=== PATIENT | male | born 1995 | race Caucasian/White ===

== ENCOUNTER 2021-09-27 22:02 | Inpatient (IN) | payer SELFPAY ==
[2021-09-27 22:46] VITALS: BP 116/71; PULSE 81; RESP 17; O2SAT 96
[2021-09-27 22:56] VITALS: BMI 23.0
--- NOTE | 2021-09-28 01:31 | PC.NURSE ---
Admission 26 y/o male with hx of PTSD. Brought to ED after cutting wrists and wrapping something around his neck. Upon arrival to unit patient is anxious, but remained calm and is cooperative. Does have superficial scratches/baptiste to wrist and neck. Denies any SI or SA , states just self harm as a release. Reports having a manic period yesterday when this happened. Patient states he has increased anxiety with being so far from home and is hoping to discharge tomorrow. States that he sees his outpatient Dr 2x week at [facility] in [facility] and has an appointment tomorrow. Reports only current medication is Celexa 20 mg QD. is anxious, but remained calm and is cooperative. Does have superficial scratches/baptiste to wrist and neck. Denies any SI or SA , states just self harm as a release. Reports having a manic period yesterday when this happened. Patient states he has increased anxiety with being so far from home and is hoping to discharge tomorrow. States that he sees his outpatient Dr 2x week at [facility] in [facility] and has an appointment tomorrow. Reports only current medication is Celexa 20 mg QD. Patient showered after admission and has been resting in bed with eyes closed since. No signs of distress noted
--- NOTE | 2021-09-28 03:45 | PC.NURSE ---
Spoke with Received new order to resume Celexa 20 mg PO QD. Noted to MAR. Set to resume at 0900.
[2021-09-28 06:00] VITALS: BP 82/47; PULSE 57; RESP 15; O2SAT 97
--- NOTE | 2021-09-28 06:33 | PC.NURSE ---
Charge nurse notified about pts low blood pressure. We asked pt to walk up to the nurses station to recheck pressure it was 98/62.
[2021-09-28] MEDS: citalopram 20 mg Tablet PO (09:47)
--- NOTE | 2021-09-28 10:15 | NPU.GN ---
[facility] Unit Group Topic: Good Secrets Vs. Bad Secrets Psycho Therapy General Mood of Group: Fredi did not attend group today.
--- NOTE | 2021-09-28 10:25 | P.NPUHP_ITS ---
Providers/Chief Complaint Admitting Physician: Serjio Vaca MD Chief Complaint: SI HPI NPU History of Present Illness Fredi Gaines is a 26 year old male who presented to the outside hospital, reportedly endorsing suicidal thoughts. The consultation for his transfer to [facility] was several days ago. He was admitted to the outside hospital with DKA, and history of depression, and recently having expressed suicidal thoughts to his mother. Psychiatry was consulted, at that time, and it was determined that inpatient hospitalization should be pursued, after his DKA was treated. It was determined, at the outside hospital, that he should not be discharged until he went to a psychiatric unit and was fully evaluated for these suicidal threats. He had recently had a cousin who attempted suicide, and he is nearing the one year anniversary of his father?s , and his great- grandfather recently committed suicide as well. He was transferred to [facility] and was admitted to the neuropsychiatric unit for definitive treatment of those issues. He reports that he has never been in a psychiatric hospital before. He has had outpatient treatment in [place] in [facility], but he has never been on medication for psychiatric reasons. He reports that he smokes a pack of cigarettes every two to three days, but he much prefers vaping. He does not drink alcohol ?unless I am partying.? He reports marijuana use daily. He denies cocaine or opiate use regularly, or any other illicit drug use, other than methamphetamine, which he reports he used to use daily. But he reports he gave that up two to three weeks ago. He denies ever being to a drug rehabilitation or having a DUI. He reports that about three to four weeks ago, he woke up to his grandmother yelling in his face about money, and he was not sure what she really wanted, but she was at his friend?s house yelling at him like that; his friend was not happy about this, and she was talking about calling the police, and he reports that they would not be happy about what could be found if the police would have come. So he ended up leaving town and going to his mother?s house, but he was not doing well at his mother?s house because he had an infection in his foot. That infection got so bad that he went to the hospital, which is where the history of the hospital picks up. He was in DKA at that time and had an infection in his foot. He was in the hospital for about a week or so, getting treatment for his DKA and the sequela from his diabetes, and then he was there for a week waiting for a place to be transferred, he reports. He denies any suicidality now; he reports that he has never felt that way, but that was what he said, in anger, towards his grandmother, but that was weeks ago. He is not interested in any medication, at this time. We discussed the risks, benefits, and alternatives of considering some medications, and he understood and agreed to proceed as is documented in this note. He denies any history of any suicide attempts. The patient reports that,around the time that he had the conflict with his grandmother, he had decided that he was going to stop using drugs, and he has not used really since that time. He denies any symptoms of depression, anxiety, or post-traumatic stress disorder, although he does report that he sees ghosts and demons; but he reports that, when he was [age] or [age] years old, he was digging up ?[place] rocks? and that ?Indians have been following me ever since, so I know it is not the drugs.? PSYCHIATRIC HISTORY: As above. SUBSTANCE ABUSE HISTORY: As above. FAMILY HISTORY: He reports that he feels that there are a lot of people in his family, on both mom and dad?s side, that have some psychiatric issues that are untreated, but he does not know anyone specifically in treatment. He reports addiction issues on both sides of the family, and there have been suicide attempts in cousins, and a suicide completion of his great grandfather on dad?s side. 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 But otherwise, he denies any issues with his mother?s or delivery of him. The patient learned to walk and talk and met all developmental milestones on time. He denies speech therapy, learning support, emotional support, or special education classes. PSYCHOSOCIAL HISTORY: The patient reports that his mother and father were together when he was born, but they did not stay together. He has a younger sister who is also a product of that union, but he denies either of his parents having any other children, to his knowledge. He reports his childhood was rough because of the drugs, especially with his father, who used, sold, and he reports ?did everything? in relation to drugs; his father about a year ago. He reports that there was no emotional, physical, or sexual abuse. He reports he graduated from high school and he has an [employer] certificate. He endorses being heterosexual, with his longest relationship being five to six months. He has never been and never had children. He has never been in the . He endorses being a [employer]. 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 He reports that he has been popping around, but he is planning on moving into a duplex with his mom, and his sister also lives there. LEGAL HISTORY: Denied. 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 He reports that he had done really well with that, except for the last year as he has not been in a good place, as he is coming up on the anniversary of his dad?s . Meds NPU Home Medications Medication Instructions Recorded Confirmed Last Taken Type citalopram [Celexa] 20 mg PO DAILY 09/27/21 09/27/21 09/26/21 History AM Allergies Allergy/AdvReac Type Severity Reaction Status Date / Time olanzapine Allergy Unknown Verified 09/27/21 23:50 Mental Status Exam MSE Comments: This is a well-nourished, well-developed, white male, with hospital scrubs on, with adequate grooming and eye contact. No abnormal movements. Cooperative with exam in no acute distress. Speech was normal rate and volume. Mood described as alright; affect congruent. Thought process, organized. Thought content: patient denied any suicidal or homicidal ideation, there were no delusions reported or noted, patient denied any auditory or visual hallucinations. Attention, concentration, and memory appear intact but none were formally tested. He is alert and oriented times three. Insight and judgment appear fair. Impulse control is limited. Vitals/I&O/Wt Last Vital Signs Pulse 57 L 09/28/21 06:00 Resp 15 09/28/21 06:00 BP 82/47 09/28/21 06:00 Pulse Ox 97 09/28/21 06:00 Weight last 48 hrs Weight 77.111 kg A&P Assessment and plan (1) Methamphetamine abuse: Status: Acute (2) Depression: Status: Acute (3) Bereavement: Status: Acute Additional A&P Information This is an 16-year-old, white male, with a long history of addiction and drug exposure, with significant genetic loading for mental health and addiction issues, who presents reporting that things have been going okay recently, and that the issues brought up in the paperwork are from weeks ago, and are not really germane now, and he would like to discharge as soon as possible. 1. Continue current medication. 2. Encourage individual, group, and milieu therapy. 3. Continue q-15 minute checks for safety. 4. Recommend sober living treatment at the highest level of care to which the patient is willing to commit. Involuntary Hold Information 96 Hour Hold: 96 Hour Involuntary Admission: Yes Attestations NPU Medical Necessity Statement*: Inpatient hospitalization is medically necessary and the clinically appropriate intervention, at this time. We will monitor medications and make changes as indicated. Patient will be in the hospital for over two midnights. Likely length of stay is one to three days. Coding Level of Care Code Acute Lamination Operator for Alexi Walters Diagnoses Methamphetamine abuse F15.10 Depression F32.A Bereavement Z63.4
--- NOTE | 2021-09-28 18:42 | W.PM.NPUH&PS ---
Providers/Chief Complaint Admitting Physician: Serjio Vaca MD Chief Complaint: SI HPI NPU History of Present Illness Fredi Gaines is a 26 year old male who presented to the outside hospital reporting being overwhelmed with anxiety and suicidal thinking. He was transferred to the [facility] and ultimately admitted to the neuropsychiatric unit for definitive treatment of those issues. He presents today immediately focused on discharge and what he needs to do to get out of here. We discussed the fact that he is on a 96-hour hold and that we would need to speak to the family to get a sense of the level of concern patient had for safety. He reports he has been in inpatient psychiatric treatment once before that was at [facility] in May. He has had limited outpatient services and reports that he is currently on Celexa but he has been taking it for a while. He reports that he smokes about pack cigarettes a day but he has exposure to vaping, he denies alcohol marijuana or any other illicit drug use. He reports he never been to rehab and never had a DUI. He reports he is going through a lot of changes and challenges right now including a divorce, reportedly lost his job this month so he has financial challenges and that also there are some issues with having access to seeing his children. He was mostly focused on discharge not interested in talking much about medication for his anxiety reporting that he is trying to get connected with an outpatient provider that he can have that conversation with. He then tried to negotiate a discharge for this evening and advised him that he would not be getting out any earlier than tomorrow and that can only happen if were able to communicate with family. Psychiatric history: As above. Substance use history: As above. Family history: Patient denies mental health or addiction issues on either side of the family and denies suicide attempts or completions in the family. Developmental history: There were no problems with the , or delivery, learned to walk and talk and met developmental milestones on time, and denies need for speech therapy, learning support, emotional support or special education classes. Psychosocial history: Reports his parents were together he was born and that they about 2007. He has an older brother and younger sister the product of that same union. Neither of his parents have any other children. He reports his childhood was normal and he denies any emotional physical or sexual abuse. He reports that he went to 12 grade in high school and is working on his GED. He reports that he is a heterosexual as well as relationship 6 years. He reports he been one time and is currently , he has a 5-year-old and 3-year-old boys, he is never in the and he denies any sikh belief system. He reports that his longest employment has been about 3 years as a [employer] and is currently unemployed. He currently lives in a house with his heriberto and her 4 children. Legal history: Denied. Medical history: Denied. Meds NPU Home Medications Medication Instructions Recorded Confirmed Last Taken Type citalopram [Celexa] 20 mg PO DAILY 09/27/21 09/27/21 09/26/21 History AM Allergies Allergy/AdvReac Type Severity Reaction Status Date / Time olanzapine Allergy Unknown Verified 09/27/21 23:50 Mental Status Exam MSE Comments: This is a well-nourished well-developed white male with hospital scrubs on the abdomen hypoactive no abnormal movement except for psychomotor agitation. Cooperative with exam in moderate distress. Speech was decreased rate and volume. Mood described as all right but anxious affect quite anxious. Thought process organized thought content: Patient denied suicidal or homicidal ideation, there were no delusions reported or noted, he denied any auditory visual hallucinations. Attention and concentration were mostly intact and memory appeared reliable but none were formally tested. He is alert and oriented x3. Insight and judgment appear fair impulse control is limited. Vitals/I&O/Wt Last Vital Signs Temp 97.9 F 09/28/21 21:23 Pulse 64 09/28/21 21:23 Resp 16 09/28/21 21:23 BP 108/66 09/28/21 21:23 Pulse Ox 97 09/28/21 21:23 Weight last 48 hrs Weight 77.111 kg A&P Assessment and plan (1) Depression: Status: Acute (2) Partner relational problem: Status: Acute (3) Generalized anxiety disorder: Status: Acute Additional A&P Information This is a 26-year-old white male with a long history of anxiety and recent psychosocial stressors which led him to self-injurious behavior which he reportedly has been in the past but denies any active suicidal thinking here in the ninth 6-hour hold. 1. Continue current medication. 2. Continue every 15 minute checks for safety. 3. Encourage individual, group and milieu therapies. 4. We will work with the treatment team to identify risk factors given the 96-hour hold to determine how long we will need to keep him given his resistance to staying. Involuntary Hold Information 96 Hour Hold: 96 Hour Involuntary Admission: Yes Attestations NPU Medical Necessity Statement*: Inpatient hospitalization is medically necessary and the clinically appropriate intervention at this time. We will monitor medication to make changes as indicated. Likely length of stay 2-4 days. Coding Level of Care Code Acute Enrichment Assistant for Alexi Walters Diagnoses Depression F32.A Partner relational problem Z63.0 Generalized anxiety disorder F41.1
[2021-09-28] MEDS: nicotine 2 mg Gum BUCCAL (19:32)
[2021-09-28] MEDS: trazodone 50 mg Tablet PO (20:33)
[2021-09-28 21:23] VITALS: BP 108/66; PULSE 64; RESP 16; TEMP 36.6; O2SAT 97
[2021-09-29 06:00] VITALS: BP 85/46; PULSE 83; RESP 16; TEMP 36.5; O2SAT 98
[2021-09-29] MEDS: citalopram 20 mg Tablet PO (08:30)
[2021-09-29] MEDS: nicotine 2 mg Gum BUCCAL ×4 (12:28→17:10)
[2021-09-29 14:00] VITALS: BP 115/76; PULSE 82; RESP 17; TEMP 36.3; O2SAT 95
[2021-09-29 18:20] VITALS: BP 115/76; PULSE 82; RESP 17; TEMP 36.3; O2SAT 95
--- NOTE | 2021-09-29 18:26 | W.PM.NPUDCS ---
Diagnoses at Discharge Discharge Diagnosis (1) Depression: Status: Acute (2) Partner relational problem: Status: Acute (3) Generalized anxiety disorder: Status: Acute Reason for Visit Reason for Visit: SI Brief History: History of Present Illness Fredi Gaines is a 26 year old male who presented to the outside hospital reporting being overwhelmed with anxiety and suicidal thinking. He was transferred to the [facility] and ultimately admitted to the neuropsychiatric unit for definitive treatment of those issues. He presents today immediately focused on discharge and what he needs to do to get out of here. We discussed the fact that he is on a 96-hour hold and that we would need to speak to the family to get a sense of the level of concern patient had for safety. He reports he has been in inpatient psychiatric treatment once before that was at [facility] in May. He has had limited outpatient services and reports that he is currently on Celexa but he has been taking it for a while. He reports that he smokes about pack cigarettes a day but he has exposure to vaping, he denies alcohol marijuana or any other illicit drug use. He reports he never been to rehab and never had a DUI. He reports he is going through a lot of changes and challenges right now including a divorce, reportedly lost his job this month so he has financial challenges and that also there are some issues with having access to seeing his children. He was mostly focused on discharge not interested in talking much about medication for his anxiety reporting that he is trying to get connected with an outpatient provider that he can have that conversation with. He then tried to negotiate a discharge for this evening and advised him that he would not be getting out any earlier than tomorrow and that can only happen if were able to communicate with family. Psychiatric history: As above. Substance use history: As above. Family history: Patient denies mental health or addiction issues on either side of the family and denies suicide attempts or completions in the family. Developmental history: There were no problems with the , or delivery, learned to walk and talk and met developmental milestones on time, and denies need for speech therapy, learning support, emotional support or special education classes. Psychosocial history: Reports his parents were together he was born and that they about 2007. He has an older brother and younger sister the product of that same union. Neither of his parents have any other children. He reports his childhood was normal and he denies any emotional physical or sexual abuse. He reports that he went to 12 grade in high school and is working on his GED. He reports that he is a heterosexual as well as relationship 6 years. He reports he been one time and is currently , he has a 5-year-old and 3-year-old boys, he is never in the and he denies any yazidi belief system. 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 He currently lives in a house with his heriberto and her 4 children. Legal history: Denied. Medical history: Denied. Hospital Course Hospital Course He slowly acclimated to the individual, group therapies provided. He was very anxious and spent much of the time like he was frightened by his surroundings. He continued to have clarity that he had no actual suicidal intentions and argued that if he was actually doing something outside of self-injurious behavior that it would be more notable than the mild scratches and scrapes seen on his body. This part was accurate. Contact with his significant other describes him being very anxious especially in his current situation and having normal separation anxiety. She denied any concerns about safety on the part of her or patient's family. We discussed the concerns about his high level of anxiety and seeming absence of capacity for self soothing. The family was clear that they wanted him home and knew he would be safe. He was able to contract for safety outside the hospital prior to discharge. At the outside hospital, patient had routine laboratory studies which were within normal limits except for few outliers. Additionally there was a general medical evaluation which was also within normal limits and revealed no new acute processes. Discharge Summary: At the time of discharge, he denied psychosis or lethality. Mood and anxiety were well managed. Patient endorsed a plan to avoid all drugs of abuse and follow-up with the aftercare recommendations of the treatment team. Patient was evaluated and deemed to be absent credible lethality, and had achieved the maximum benefit from an inpatient hospitalization especially given his unwillingness to explore any medication recommendations, so was discharged. Involuntary Hold Information 96 Hour Hold: 96 Hour Involuntary Admission: Yes Mental Status Exam MSE Comments: This is a well-nourished well-developed white male with hospital scrubs on the abdomen hypoactive no abnormal movement except for psychomotor agitation. Cooperative with exam in mild distress. Speech was decreased rate and volume. Mood described as anxious, affect quite anxious. Thought process organized thought content: Patient denied suicidal or homicidal ideation, there were no delusions reported or noted, he denied any auditory visual hallucinations. Attention and concentration were mostly intact and memory appeared reliable but none were formally tested. He is alert and oriented x3. Insight and judgment appear fair impulse control is limited. Discharge Data Vitals: Last Vital Signs Temp 97.3 F L 09/29/21 18:20 Pulse 82 09/29/21 18:20 Resp 17 09/29/21 18:20 BP 115/76 09/29/21 18:20 Pulse Ox 95 09/29/21 18:20 Discharge Plan Discharge Patient Disposition: Home Condition: Stable Prescriptions: Continued Celexa 20 mg tablet 20 mg PO DAILY 30 Days Qty: 30 RF: 1 Discharge Orders: Discharge Order (Routine); Ordered 09/29/21 Ordered By: Serjio Vaca Discharge Diet: Regular Discharge Activity: Resume usual activity Patient Instructions: Opioid Safety Discharge Attestations NPU Time Spent in Discharge Care*: greater than 30 min Specific Discharge Activities: Specific discharge activities: educating patient, discussing with case work aide/social workers/dc planners, documenting/other paperwork and evaluating patient/reviewing data Coding Level of Care Code Acute Chg DC note Diagnoses Depression F32.A Partner relational problem Z63.0 Generalized anxiety disorder F41.1
== END 2021-09-29 18:32 | disposition home or self-care (01) | DRG 880 ==
PROVIDERS: Admitting Provider Psychiatry & Neurology Psychiatry; Visit Provider Psychiatry & Neurology Psychiatry
DX: F41.1 Generalized anxiety disorder (principal); F32.A Depression, unspecified; R45.88 Nonsuicidal self-harm; F17.210 Nicotine dependence, cigarettes, uncomplicated; Z63.0 Problems in relationship with spouse or partner; Z63.5 Disruption of family by separation and divorce; Z59.9 Problem related to housing and economic circumstances, unspecified; Z91.52 Personal history of nonsuicidal self-harm